=== PATIENT | female | born 1990 | race Two or more races ===

== ENCOUNTER 2022-07-03 17:41 | Emergency (ER) | payer MEDICAID ==
[~2022-07-03] VITALS: Ht 165.1 cm; Wt 63.0 kg
[~2022-07-03 17:41] MED LIST: AMOX500T2 MT; HYDR-4001 MT; IBUP-2030 MT
[2022-07-03] MEDS ORDERED: METOCLOPRAMIDE HCL 10MG/2ML VIAL IV ONE ×2 (22:15)
[2022-07-03] MEDS ORDERED: KETOROLAC 15MG/ML VIAL IV ONE (22:15)
[2022-07-03 22:39] LABS: BASOPHILS % 0.3 % (0.0-2.0); EOSINOPHILS % 1.3 % (0.0-5.0); HEMATOCRIT. 40.9 % (36.0-48.0); HEMOGLOBIN. 13.6 g/dL (12.0-16.0); LYMPHOCYTES % 20.5 % (20.0-50.0); MEAN CORPUSCULAR HEMOGLOBIN 28.2 pg (28.0-32.0); MEAN PLATELET VOLUME 9.5 fl (7.4-10.4); MONOCYTES % 4.9 % (2.0-8.0); PLATELET 278 x1000/uL (130-400); RED BLOOD CELL COUNT 4.81 mill/uL (4.2-5.4); RED CELL DISTRIBUTION WIDTH 13.3 % (11.6-14.6)
[2022-07-03 22:47] LABS: CHLORIDE 107 mEq/L (98-107); HCG SCREEN NEGATIVE
[2022-07-03] MEDS ORDERED: DIPHENHYDRAMINE 50MG/ML VIAL IV ONE (23:00)
[2022-07-03 23:32] VITALS: BP 112/73
[2022-07-03] MEDS ORDERED: IBUP-2028 MT (23:55)
[2022-07-03] MEDS ORDERED: AMOX-494 MT (23:55)
== END 2022-07-04 00:14 | disposition home or self-care (01) ==
LOC: ER 17:41
DX: R51.9 Headache, unspecified (principal); H92.01 Otalgia, right ear; K08.89 Other specified disorders of teeth and supporting structures; Z90.49 Acquired absence of other specified parts of digestive tract; Z79.899 Other long term (current) drug therapy
CPT/HCPCS: 36415; 71045; 80053; 84703; 85025; 96374; 96375; 99284; J1200; J1885; J2765